=== PATIENT | male | born 1945 | race Caucasian/White ===

== ENCOUNTER 2018-09-04 11:14 | Emergency (ER) | payer MEDICARE, BC ==
--- NOTE | 2018-09-04 11:44 | ED ---
GI/ HPI - HPI Summary HPI Summary: This pt is a 72 y/o male presenting to [facility] c/o lower abd pain and cloudy urine. Pt reports he self caths about 4 times a day for urinary retention. He has been self cathing for 3 months now. He notes that today he noticed his urine was cloudy. Additionally he states he has been feeling hot and has been constipated. Denies fever today, chills, nausea, vomiting, diarrhea. Pt reports he has been having digestive problems that include abd bloating and feeling uncomfortable. He notes doctors have not been able to figure out what he has. His urologist is Dr. Mondragon in [place]. Pt has had a cystoscopy in the past. Pt denies hx of UTI. PMHx: open heart surgery for aortic aneurysm and aortic valve replacement. 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 - History of Current Complaint Chief Complaint: EDUrogenitalProblems Time Seen by Provider: 09/04/18 11:21 Stated Complaint: ABD PAIN/USING CATH/CLOUDY URINE Hx Obtained From: Patient Onset/Duration: Started Hours Ago, Still Present Timing: Lasting Hours Current Severity: Moderate Pain Intensity: 8 Location of Pain: Other - lower abd Associated Signs and Symptoms: Positive: Abdominal Pain, Other: - POS: cloudy urine, constipation. Negative: Nausea, Vomiting, Diarrhea, Fever, Chills - Allergy/Home Medications Allergies/Adverse Reactions: Allergies Allergy/AdvReac Type Severity Reaction Status Date / Time benazepril AdvReac Coughing Verified 09/04/18 11:20 PMH/Surg Hx/FS Hx/Imm Hx Endocrine/Hematology History: Denies: Hx Diabetes Cardiovascular History: Reports: Hx Aneurysm, Hx Coronary Artery Disease - Surgical History Surgery Procedure, Year, and Place: frontal sinus sx to prevent csf leak, cataract, Aneurysm, aortic valve replacement. Infectious Disease History: No Infectious Disease History: Denies: Traveled Outside the [place] in Last 30 Days - Family History Known Family History: Positive: Diabetes - father and mother Family History: Father with colon CA. Mother with alzheimer's - Social History Occupation: Retired Alcohol Use: Daily Substance Use Type: Reports: None Smoking Status (MU): Heavy Every Day Tobacco Smoker Review of Systems Negative: Fever, Chills Gastrointestinal: Other - POS: constipation, abd bloating Positive: Abdominal Pain. Negative: Vomiting, Diarrhea, Nausea Genitourinary: Other - POS: cloudy urine All Other Systems Reviewed And Are Negative: Yes Physical Exam - Summary Physical Exam Summary: Appearance: Well-appearing, Well-nourished, lying in bed comfortably Skin: Warm, dry, no obvious rash Eyes: sclera anicteric, no conjunctival pallor ENT: mucous membranes moist, pharynx appears normal Neck: Supple, nontender Respiratory: Clear to auscultation, no signs of respiratory distress Cardiovascular: Normal S1, S2. No murmurs. Normal distal pulses in tibial and radial bilaterally. Abdomen: Soft, nontender, normal active bowel sounds present Musculoskeletal: Normal, Strength/ROM Intact Neurological: A&Ox3, awake and alert, mentation is normal, speech is fluent and appropriate Psychiatric: affect is normal, does not appear anxious or depressed Triage Information Reviewed: Yes Vital Signs On Initial Exam: Initial Vitals Temp Pulse Resp BP Pulse Ox 97.3 F 80 16 128/83 99 09/04/18 11:15 09/04/18 11:15 09/04/18 11:15 09/04/18 11:15 09/04/18 11:15 Vital Signs Reviewed: Yes Diagnostics - Vital Signs Vital Signs Temp Pulse Resp BP Pulse Ox 09/04/18 11:15 97.3 F 80 16 128/83 99 - Laboratory Result Diagrams: 09/04/18 11:43 09/04/18 11:43 Lab Statement: Any lab studies that have been ordered have been reviewed, and results considered in the medical decision making process. Re-Evaluation - Re-Evaluation First Eval Re-Evaluation Time: 13:13 Comment: I reviewed lab results with the pt. Pt states he has chronic hyponatremia. GIGU Course/Dx - Course Assessment/Plan: Pt is a 72 y/o male, with hx of urinary retention, who presents with lower abd pain and cloudy urine. Pt reports he self caths about 4 times a day for 3 months now. Additionally he states he has been feeling hot and has been constipated. Laboratory studies are notable for pyuria, confirming the suspicion of UTI. Blood work is also notable for mild hypokalemia and moderate to severe hyponatremia. I contacted the patient's primary care office, and was able to confirm that he does have chronic hyponatremia with a sodium level recently being 124. He does not seem to be symptomatic from his hyponatremia and certainly this is a chronic problem. I don't believe he requires hospitalization to manage this, I will treat his UTI with a dose of Rocephin IV here and start him on Keflex as an outpatient. I have asked him to check in with his doctor later this week. Labs remarkable for WBC of 16.3, hemoglobin of 12.8, hematocrit of 36, sodium of 119, potassium of 3, chloride of 84, glucose of 115. In the ED course the pt was given IV fluids, potassium chloride, Rocephin. - Diagnoses Provider Diagnoses: UTI (urinary tract infection), Hypokalemia, Hyponatremia Discharge - Sign-Out/Discharge Documenting (check all that apply): Patient Departure - Discharge home Patient Received Moderate/Deep Sedation with Procedure: No - Discharge Plan Condition: Good Disposition: HOME Prescriptions: Cephalexin CAP* [Keflex CAP*] 500 mg PO QID #28 cap Patient Education Materials: Urinary Tract Infection in Men (ED), Hyponatremia (ED), Hypokalemia (ED) Referrals: Cirilo Jean-Baptiste MD [Primary Care Provider] - Additional Instructions: The antibiotic prescription has been sent to [facility]'s. I was able to reach Dr. Jean-Baptiste's office and confirmed that your sodium level is chronically low, so you do not require hospitalization for this. The antibiotic you received IV will last for 24 hrs, so you do not need to start the oral antibiotic until tomorrow morning. Please contact Dr. Jean-Baptiste's office so they can get you in for a recheck on your sodium and potassium levels later this week. - Billing Disposition and Condition Condition: GOOD Disposition: Home - Attestation Statements Document Initiated by Shireen: Yes Documenting Scribe: Ysabel Ford Provider For Whom Shireen is Documenting (Include Credential): Zhen Tavares MD Scribe Attestation: I, Ysabel Ford, scribed for Zhen Tavares MD on 09/04/18 at 1926. Scribe Documentation Reviewed: Yes Provider Attestation: The documentation as recorded by the Ysabel anderson accurately reflects the service I personally performed and the decisions made by me, Zhen Tavares MD Status of Scribe Document: Viewed
[2018-09-04 12:11] LABS: Albumin 3.8 g/dL (3.2-5.2); Albumin/Globulin Ratio 1.2 (1-3); BUN/Creatinine Ratio 16.5 (8-20); EGFR African American 116.7 (>60); EGFR Non-African American 96.4 (>60); Globulin 3.3 g/dL (2-4); Total Bilirubin 1.1 mg/dL (0.2-1.0); Total Protein 7.1 g/dL (6.4-8.9)
[2018-09-04 12:13] LABS: Hematocrit 36 % (42-52); Hemoglobin 12.8 g/dl (14.0-18.0); Mean Corpuscular HGB Conc 36 g/dl (31-36); Mean Corpuscular Hemoglobin 35 pg (27-31); Mean Corpuscular Volume 98 fL (80-94); Mean Platelet Volume 6.6 fL (7.4-10.4); Platelet Count 246 10^3/ul (150-450); Red Blood Count 3.64 10^6/ul (4.00-5.40); Red Cell Distribution Width 13 % (10.5-15); White Blood Count 16.3 10^3/ul (3.5-10.8)
[2018-09-04 12:46] LABS: ABS Basophils 0 10^3/ul (0-0.2); ABS Eosinophils 0 10^3/ul (0-0.6); ABS Lymphocytes 1.1 10^3/ul (1.0-4.8); ABS Monocytes 1.6 10^3/ul (0-0.8); ABS Neutrophils 13.5 10^3/ul (1.5-7.7); ABS Nucleated RBC 0 10^3/ul; Eosinophil % 0.1 %; Lymphocyte % 6.9 %; Nucleated Red Blood Cells % 0
[2018-09-04] MEDS ORDERED: NS 0.9% 1000 ML** 1,000 ML IV ONE (12:47)
[2018-09-04 12:56] LABS: Urine Appearance Turbid; Urine Bacteria Absent (Absent); Urine Bilirubin Negative (Negative); Urine Blood 3+ (Negative); Urine Color Amber; Urine Glucose Negative (Negative); Urine Ketones Negative (Negative); Urine Nitrite Negative (Negative); Urine Protein 2+(100 mg/dL) (Negative); Urine Red Blood Cell 3+(>10/hpf) (Absent); Urine Renal Epithelial Cells Present (Absent); Urine Specific Gravity 1.012 (1.010-1.030); Urine Urobilinogen Negative (Negative); Urine White Blood Cell 3+(>20/hpf) (Absent)
[2018-09-04] MEDS ORDERED: Potassium Chlor TAB* 20 MEQ TAB.ER PO ONE (13:08)
[2018-09-04] MEDS ORDERED: cefTRIAXone(*) 1 GM in NS 0.9% 50 ML* 50 ML IVPB ONE (13:08)
[2018-09-04 15:04] VITALS: BP 137/92
[2018-09-05 19:56] LABS: Hepatitis C Antibody Nonreactive (Nonreactive)
--- NOTE | 2018-09-06 06:10 | PN ---
Progress Note - Progress Note Date of Service: 09/04/18 Note: Urine culture preliminary grew Enterobacter Cloacae Patient was placed on Keflex prior to discharge We will await sensitivities
--- NOTE | 2018-09-07 05:40 | PN ---
Progress Note - Progress Note Date of Service: 09/04/18 Note: Patient's urine culture final grew Enterobacter Cloacae Patient was placed on Cefazolin and prior to discharge This is resistant organism We'll place on ciprofloxacin which is sensitive to organism Medication sent to pharmacy called patient at 7:40am on 09/07 and left message Will send letter today if patient does not return call
--- NOTE | 2018-09-07 11:04 | PN ---
Progress Note - Progress Note Date of Service: 09/04/18 Note: Called patient back at 11 AM and spoke with patient, Xavier Discussed findings and new antibiotic which will cover Enterobacter Patient voices understanding and states he will tile picker the prescription today at pharmacy Prescription sent to pharmacy
== END 2018-09-04 15:50 | disposition home or self-care (01) ==
LOC: ED 11:14
DX: N39.0 Urinary tract infection, site not specified (principal); E87.6 Hypokalemia; E87.1 Hypo-osmolality and hyponatremia; R10.9 Unspecified abdominal pain; K59.00 Constipation, unspecified; R10.30 Lower abdominal pain, unspecified; F17.210 Nicotine dependence, cigarettes, uncomplicated
CPT/HCPCS: 36415; 80053; 81003; 81015; 83605; 85025; 85060; 86803; 87077; 87086; 87186; 96361; 96365; 99283; A9270-GY; J0696

== ENCOUNTER 2019-05-27 15:12 | Emergency (ER) | payer MEDICARE, BC ==
[2019-05-27 15:20] VITALS: BP 166/111
--- OUTSIDE RECORDS SUMMARY | 2019-05-27 16:22 | XMS REPORT | Continuity of Care Document ---
:1945 External Reference #:[id number] Author Name Jerry Soto PA Address [address], [address] [place] [address] Care Team Providers Name Role Phone Cirilo Jean-Baptiste MD - Family Medicine Care Team Information Produce Service Team Member Romaine Mondragon M.D. - Urology Care Team Information Produce Service Team Member Problems Active Problems Provider Date Raised prostate specific antigen Romaine Mondragon M.D. Onset: 07/02/2018 Retention of urine Romaine Mondragon M.D. Onset: 07/02/2018 Benign prostatic hypertrophy with outflow Romaine Mondragon M.D. Onset: 2017 obstruction Social History Type Date Description Comments Sex Unknown ETOH Use Currently consumes alcohol 4 beers a night Tobacco Use Start: Unknown Patient is a current a pack a day smoker, smokes every day Recreational Drug Use Denies Drug Use Smoking Status Reviewed: 05/15/19 Patient is a current a pack a day smoker, smokes every day Allergies, Adverse Reactions, Alerts Description No Known Drug Allergies Medications Active Medications SIG Qnty Indications Ordering Date Provider Amlodipine Besylate Take 1 Tablet By Unknown Mouth Every Day 10mg Tablets Timolol Maleate 1 GTT to left eye Fabian Sandhu, 0.5% MD Solution Tamsulosin HCL take 1 capsule by 90capRomaine Yuen, 0.4mg mouth every day M.DMarisa Capsules Aspirin 1 by mouth every Unknown 81mg Tablets day Fluomichael Apply A Thin Film Unknown 0.05% Topically To Ointment Affected Area(S) On Trunk And Extremities Two Times Daily For 2 Weeks Then Break For 1 Week Metoprolol Tartrate 1 1/2 tablets by Rashel Carney mouth bid 25mg Tablets Amitiza Take 1 Capsule By Unknown 24mcg Mouth Two Times Capsules Daily History Medications Gentamicin Sulfate given once in office 2ml Romaine Mondragon, 05/14/2019 - for in office M.DMarisa 05/15/2019 40mg/ml Solution procedure. given intramuscular - 80 mg Cefdinir 1 tab by mouth once 20caps Romaine Mondragon, 05/14/2019 - 300mg given in office before M.DMarisa 05/15/2019 Capsules procedure with take home pack with instructions Medications Administered in Office Medication SIG Qnty Indications Ordering Provider Date Injection Gentamicin To Romaine Mondragon M.D. 05/14/2019 80MG/2ML Injection Immunizations Description No Information Available Vital Signs Date Vital Result Comment 05/16/2019 1:06pm BP Systolic 161 mmHg BP Diastolic 95 mmHg Body Temperature 97.3 F Heart Rate 72 /min Respiratory Rate 18 /min Height 66 inches 5'6" Weight 179.12 lb BMI (Body Mass Index) 28.9 kg/m2 BSA (Body Surface Area) 1.91 m2 [place] body weight in kilograms 64 kg O2 % BldC Oximetry 98 % Pain Level 2 Catheter 05/14/2019 11:00am BP Systolic 155 mmHg BP Diastolic 83 mmHg Body Temperature 98.1 F Heart Rate 61 /min Respiratory Rate 18 /min Height 66 inches 5'6" Weight 181.00 lb BMI (Body Mass Index) 29.2 kg/m2 BSA (Body Surface Area) 1.92 m2 [place] body weight in kilograms 64 kg O2 % BldC Oximetry 96 % Pain Level 2 intestinal pain from chronic constipation Results Test Date Facility Test Result H/L Range Note Urine Dipstick 05/14/2019 [facility] Color yellow Yellow Ua Clarity clear Clear Ua Leuko neg Negative Ua Nitrite neg Negative Ua Urobilinogen 0.2 0.2 - 1.0 E.U./dL Ua Protein neg Negative Ua PH 6.0 Low 6.5-7.5 Ua Blood neg Negative Ua Specific [place] 1.025 1.010-1.030 Ua Ketones neg Negative Ua Bilirubin neg Negative Ua Glucose neg Negative Laboratory test 04/29/2019 [facility] Prostate 7.34 ng/mL < 4.0 1, [address] [place] [address] Antigen [phone] Urine Culture 04/29/2019 [facility] Urine Culture NO GROWTH: [address] <[place] [address] NOTE> [phone] Urine Dipstick 04/29/2019 [facility]a Color yellow Yellow Ua Clarity clear Clear Ua Leuko neg Negative Ua Nitrite neg Negative Ua Urobilinogen .2 0.2 - 1.0 E.U./dL Ua Protein neg Negative Ua PH 6.0 Low 6.5-7.5 Ua Blood neg Negative Ua Specific [place] 1.010 1.010-1.030 Ua Ketones neg Negative Ua Bilirubin neg Negative Ua Glucose neg Negative 1 N40.1 Z12.5 2 THIS ASSAY IS NOT INTENDED A CANCER SCREENING TEST The concentration of PSA in a given specimen, determined with assays from different manufacturers, can vary due to differences in assay methods and reagent specificity. Values obtained from different assay methods cannot be used interchangeably. Method: VenueJamta Chemiluminescent immunoassay. 3 NO GROWTH: FINAL REPORT Procedures Date Code Description Status 05/14/2019 65146 Theraputic Or Diagnostic Injection Completed 05/14/2019 47545 Cystourethroscopy Each Additional Permanent Adj Implant Completed 05/14/2019 06653 Cystourethroscopy W/ Insert Permanent Adj Transprostatic Completed Implant 04/29/2019 24710 Measurement Post Voiding Residual Urine By Completed Ultrasound,Non-Imaging 04/29/2019 66537 complex uroflowmetry electronic Completed 11/19/2018 32639 Ultrasound Transrectal Completed Medical Devices Description No Information Available Encounters Type Date Location Provider Dx Diagnosis Office Visit 05/16/2019 Urology Jerry Soto, R33.9 Retention of urine, 1:15p PA unspecified Office Visit 04/29/2019 Urology Romaine Mondragon, N40.1 Benign prostatic 2:30p M.D. hyperplasia with lower urinary tract symp Office Visit 11/19/2018 Urology Romaine Mondragon, N40.1 Benign prostatic 2:00p M.D. hyperplasia with lower urinary tract symp R33.9 Retention of urine, unspecified Z71.6 Tobacco abuse counseling Assessments Date Code Description Provider 05/16/2019 R33.9 Retention of urine, unspecified Jerry Soto PA 05/14/2019 R33.9 Retention of urine, unspecified Romaine Mondragon M.D. 05/14/2019 N40.1 Benign prostatic hyperplasia with lower Romaine Mondragon M.D. urinary tract symptoms 04/29/2019 N40.1 Benign prostatic hyperplasia with lower Romaine Mondragon M.D. urinary tract symptoms 11/19/2018 N40.1 Benign prostatic hyperplasia with lower Romaine Mondragon M.D. urinary tract sympto 11/19/2018 R33.9 Retention of urine, unspecified Romaine Mondragon M.D. 11/19/2018 Z71.6 Tobacco abuse counseling Romaine Mondragon M.D. Plan of Treatment Future Appointment(s):05/30/2019 2:00 pm - Jerry Soto PA at [id number] - Jerry Soto, PAR33.9 Retention of urine, unspecifiedComments: Exam his bladder completely. Patient reassured. Follow-ups 2 weeks for uroflow PVR and IPSS Functional Status Description No Information Available Mental Status Description No Information Available Referrals Description No Information Available
--- OUTSIDE RECORDS SUMMARY | 2019-05-27 16:22 | XMS REPORT | Continuity of Care Document ---
:1945 External Reference #:[id number] Author Name Romaine Mondragon M.D. Address [address] [place] [address] Care Team Providers Name Role Phone Cirilo Jean-Baptiste MD - Family Medicine Care Team Information Reinstatement Clerk [phone] Romaine Mondragon M.D. - Urology Care Team Information Reinstatement Clerk Problems Active Problems Provider Date Raised prostate [...] Use Denies Drug Use Smoking Status Reviewed: 04/29/19 Patient is a current a pack a day smoker, smokes every day Allergies, Adverse Reactions, Alerts Description No Known Drug Allergies Medications Active Medications SIG Qnty Indications Ordering Date Provider Amlodipine Besylate Take 1 Tablet By Unknown Mouth Every Day 10mg Tablets Timolol Maleate 1 GTT to left eye Fabian Sandhu, 0.5% MD Solution Tamsulosin HCL take 1 capsule by 90caps Romaine Mondragon, 0.4mg mouth every day M.DMarisa Capsules Aspirin 1 by mouth every Unknown 81mg Tablets day DR Patterson Apply A Thin Film Unknown 0.05% Topically To Ointment Affected Area(S) On Trunk And Extremities Two Times Daily For 2 Weeks Then Break For 1 Week Metoprolol Tartrate 1 1/2 tablets by Rashel Carney mouth bid 25mg Tablets Amitiza Take 1 Capsule By Unknown 24mcg Mouth Two Times Capsules Daily Immunizations Description No Information Available Vital Signs Date Vital Result Comment 04/29/2019 2:36pm BP Systolic Sitting Left Arm 157 mmHg BP Diastolic Sitting Left Arm 94 mmHg Body Temperature 97.0 F Heart Rate 66 /min Respiratory Rate 20 /min Height 66 inches 5'6" Weight 178.00 lb BMI (Body Mass Index) 28.7 kg/m2 BSA (Body Surface Area) 1.90 m2 [place] body weight in kilograms 64 kg O2 % BldC Oximetry 99 % 11/19/2018 2:02pm BP Systolic 148 mmHg BP Diastolic 81 mmHg Body Temperature 97.7 F Heart Rate 69 /min Respiratory Rate 18 /min Height 66 inches 5'6" Weight 181.38 lb BMI (Body Mass Index) 29.3 kg/m2 BSA (Body Surface Area) 1.92 m2 [place] body weight in kilograms 64 kg O2 % BldC Oximetry 99 % Pain Level 0 Results Test Date Facility Test Result H/L Range Note Urine Dipstick 04/29/2019 [facility]a Color yellow Yellow Ua Clarity clear Clear Ua Leuko neg Negative Ua Nitrite neg Negative Ua Urobilinogen .2 0.2 - 1.0 E.U./dL Ua Protein neg Negative Ua PH 6.0 Low 6.5-7.5 Ua Blood neg Negative Ua Specific [place] 1.010 1.010-1.030 Ua Ketones neg Negative Ua Bilirubin neg Negative Ua Glucose neg Negative Procedures Date Code Description Status 04/29/2019 05783 Measurement Post Voiding Residual Urine By Completed Ultrasound,Non-Imaging 04/29/2019 05692 complex uroflowmetry electronic Completed 11/19/2018 33286 Ultrasound Transrectal Completed Medical Devices Description No Information Available Encounters Type Date Location Provider Dx Diagnosis Office Visit 11/19/2018 Urology Romaine Mondragon N40.1 Benign prostatic 2:00p M.DMarisa hyperplasia with lower urinary tract symp R33.9 Retention of urine, unspecified Z71.6 Tobacco abuse counseling Assessments Date Code Description Provider 04/29/2019 N40.1 Benign prostatic hyperplasia with lower Romaine Mondragon M.D. urinary tract symptoms 11/19/2018 N40.1 Benign prostatic hyperplasia with lower Romaine Mondragon M.D. urinary tract sympto 11/19/2018 R33.9 Retention of urine, unspecified Romaine Mondragon M.D. 11/19/2018 Z71.6 Tobacco abuse counseling Romaine Mondragon M.D. Plan of Treatment 04/29/2019 - Romaine Mondragon M.D.N40.1 Benign prostatic hyperplasia with lower urinary tract symptomsNew Labs:Prostate Specific Antigen, Ordered: Urine Culture, Ordered: 04/29/19Comments:Patient with an enlarged prostate. We did discuss today the urethral lift procedure the risks and benefits off it and the chances of him needing a temporarily Parra catheter afterwards. Patient is agreeable to proceed with it but he understands that this might not fix his retention problem.. He would like to proceed with that and will be scheduled. A PSA will be checked today. Functional Status Description No Information Available Mental Status Description No Information Available Referrals Description No Information Available
== END 2019-05-27 17:09 | disposition left against medical advice (07) ==
LOC: ED 15:12
DX: R10.9 Unspecified abdominal pain (principal); R05 Cough; Z53.21 Procedure and treatment not carried out due to patient leaving prior to being seen by health care provider
CPT/HCPCS: 99282

== ENCOUNTER 2019-05-28 10:13 | Emergency (ER) | payer MEDICARE, BC ==
[2019-05-28 10:22] VITALS: BP 150/88
--- NOTE | 2019-05-28 11:52 | UC ---
Abdominal Pain Male HPI - HPI Summary HPI Summary: 2 concerns today: ~One week of cough productive of white sputum without shortness of breath. He is a halfway smoker without a history of chronic bronchitis or COPD. ~Long hx of chronic constipation and abdominal bloating, concerned about having a hernia. Chronic LLQ pain, work up per Dr. Srivastava, and he has tried dietaty changes, laxatives and medications without relief of symptoms. He is concerned that the sense of LLQ bulge which he has could represent a hernia. 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 Notably, one of the CT scans led to detection and surgical treatment of his aortic aneurysm. - History of Current Complaint Chief Complaint: UCRespiratory Stated Complaint: ABDOMINAL PAIN, AND RESPIRATORY ISSUES Time Seen by Provider: 05/28/19 11:44 Hx Obtained From: Patient Onset/Duration: Gradual Onset, Lasting Days - in the case of the respiratory illness. Timing: Intermittent Episodes Lasting: - bowel symptoms wax and wane, but he always has some lower gi discomfort. Severity Initially: Mild Severity Currently: Moderate Pain Intensity: 8 Location: Discrete At: LLQ - abdominal pain is in LLQ Radiates: No Character: Aching, Dull Aggravating Factor(s): Movement Alleviating Factor(s): Rest - He never has nocturnal pain, symptoms start on awakening., Position Associated Signs And Symptoms: Positive: Cough - Risk Factors Testicular Torsion: Negative Cardiac Risk Factors: Hypertension - Allergies/Home Medications Allergies/Adverse Reactions: Allergies Allergy/AdvReac Type Severity Reaction Status Date / Time benazepril AdvReac Coughing Verified 05/28/19 10:23 Home Medications: Home Medications Lubiprostone [Amitiza] 24 mcg PO DAILY WITH MEAL 05/28/19 [History Confirmed 12/09] PMH/Surg Hx/FS Hx/Imm Hx Cardiovascular History: Hypertension, Other - repair of aortic aneurysm and aortic valve replacement. GI/ History: Other - chronic constipation. Psychological History: Anxiety - he is worried about this pain. - Surgical History Surgical History: Yes Surgery Procedure, Year, and Place: frontal sinus sx to prevent csf leak, cataract, Aneurysm, aortic valve replacement. - Family History Known Family History: Positive: Diabetes - father and mother Family History: Father with colon CA. Mother with alzheimer's - Social History Occupation: Retired Lives: With Family Alcohol Use: Daily Alcohol Amount: 4-5 beers daily Substance Use Type: None Smoking Status (MU): Heavy Every Day Tobacco Smoker Review of Systems All Other Systems Reviewed And Are Negative: Yes Constitutional: Positive: Negative Skin: Positive: Negative Eyes: Positive: Negative ENT: Positive: Nasal Discharge, Sinus Congestion Respiratory: Positive: Cough. Negative: Shortness Of Breath Cardiovascular: Negative: Palpitations, Chest Pain Gastrointestinal: Positive: Abdominal Pain, Other - chronic sense of incomplete evacuation. Genitourinary: Positive: Negative Motor: Positive: Negative Neurovascular: Positive: Negative Musculoskeletal: Positive: Negative Neurological: Positive: Negative Psychological: Positive: Anxious Is Patient Immunocompromised?: No Physical Exam Triage Information Reviewed: Yes Appearance: Well-Appearing - Looks younger than stated age, and in no acute distress, Well-Nourished, Pain Distress - mild Vital Signs: Initial Vital Signs Temp 97.8 F 05/28/19 10:16 Pulse 67 05/28/19 10:16 Resp 16 05/28/19 10:16 BP 150/88 05/28/19 10:16 Pulse Ox 100 05/28/19 10:16 Eye Exam: Normal ENT: Positive: Pharynx normal, TMs normal Neck: Positive: Supple, Nontender, No Lymphadenopathy Respiratory: Positive: No respiratory distress, No accessory muscle use, Wheezing - throughout, Expiration - mildly prolonged expiration and wheeze. Cardiovascular Exam: Other - mid sternal scar. Cardiovascular: Positive: RRR, No Murmur Abdominal Exam: Other - Mild diastasis Abdomen Description: Positive: No Organomegaly, Soft, Other: - cannot palpate hernia either lying or standing. He has tenderness in the LLQ without guarding or rebound, and without a palpable. mass.. Negative: CVA Tenderness (R), CVA Tenderness (L) Bowel Sounds: Positive: Present Musculoskeletal Exam: Normal Neurological Exam: Normal Neurological: Positive: Alert Psychological Exam: Other - mildly anxious Skin Exam: Normal Abd Pain Male Course/Dx - Course Course Of Treatment: Continue measures, including Amitiza, for chronic constipation. Advised follow up with Dr. Srivastava and Dr. Jean-Baptiste regarding chronic concerns about his lower abdominal pain and constipation. Enouraged smokestopping although he indicates that is unlikely. Needs follow up blood pressure check. Amoxicillin for treatment of bronchitis. He is not inclined to try inhaled medications. - Differential Dx/Clinical Impression Provider Diagnosis: Bronchitis, Constipation, chronic Discharge ED - Sign-Out/Discharge Documenting (check all that apply): Patient Departure All imaging exams completed and their final reports reviewed: No Studies - Discharge Plan Condition: Stable Disposition: HOME Prescriptions: Amoxicillin PO (*) [Amoxicillin 875 MG (*)] 875 mg PO BID #20 tab Patient Education Materials: Acute Bronchitis (ED) Referrals: Cirilo Jean-Baptiste MD [Primary Care Provider] - Additional Instructions: Please take complete course of antibiotics to treat bronchitis. I urge you to stop smoking. for chronic constipation, please follow up with Dr. Srivastava for evaluation. Follow up with Dr. Jean-Baptiste as well to review approach to chronic abdominal pain. - Billing Disposition and Condition Condition: STABLE Disposition: Home
== END 2019-05-28 12:21 | disposition home or self-care (01) ==
LOC: UCEAST 10:13
DX: J40 Bronchitis, not specified as acute or chronic (principal); K59.09 Other constipation; I10 Essential (primary) hypertension; Z95.2 Presence of prosthetic heart valve; Z88.8 Allergy status to other drugs, medicaments and biological substances; Z79.899 Other long term (current) drug therapy
CPT/HCPCS: 99212; G0463